=== PATIENT | female | born 1980 | race African-American/Black ===

== ENCOUNTER 2017-05-15 17:05 | Emergency (ER) | payer OTHER ==
[~2017-05-15] VITALS: Ht 160 cm; Wt 59.9 kg
[2017-05-15 18:07] LABS: URINE BILIRUBIN NEGATIVE (Negative); URINE BLOOD NEGATIVE (Negative); URINE COLOR YELLOW; URINE GLUCOSE-RANDOM* NEGATIVE (Negative); URINE KETONES TRACE (Negative); URINE LEUKOCYTES-REFLEX NEGATIVE (Negative); URINE PROTEIN (DIPSTICK) NEGATIVE (Negative); URINE SPECIFIC GRAVITY 1.015 (1.003-1.035); URINE UROBILINOGEN 0.2 E.U./dl (0.2-1.0)
[2017-05-15 18:41] LABS: ABSOLUTE NEUTROPHILS 5.3 thou/uL (1.4-8.2); BASOPHILS 0.8 % (0.0-2.0); EOSINOPHILS 2.1 % (0.0-3.0); HEMATOCRIT 42.8 % (37.0-47.0); HEMOGLOBIN 14.9 gm/dL (12.0-15.0); LYMPHOCYTES 17.3 % (24.0-44.0); MCHC 34.7 g/dL (28.0-37.0); MCV 89.5 fL (80.0-100.0); PLATELET COUNT 214 thou/uL (150-400); POLYS 72.8 % (36.0-66.0); RBC 4.79 mil/uL (4.20-5.00); RDW 13.1 % (10.5-14.5); WBC 7.3 thou/uL (4.0-11.0)
[2017-05-15 18:43] LABS: MANUAL DIFF NO
[2017-05-15 18:49] LABS: CALCIUM 9.1 mg/dL (8.5-10.1); POTASSIUM 3.5 mmol/L (3.5-5.1)
[2017-05-15] MEDS ORDERED: NAPROSYN500 MG PO (19:32)
[2017-05-15] MEDS ORDERED: BACLOFEN 10MG T10 MG PO (19:32)
[2017-05-15 19:45] VITALS: BP 129/72
== END 2017-05-15 19:47 | disposition home or self-care (01) ==
LOC: ER
PROVIDERS: Emergency Medicine
DX: M54.6 Pain in thoracic spine (principal); F17.210 Nicotine dependence, cigarettes, uncomplicated; Z88.1 Allergy status to other antibiotic agents